=== PATIENT | female | born 1980 | race African-American/Black ===

== ENCOUNTER 2016-05-17 21:47 | Emergency (ER) | payer OTHER ==
[2016-05-17] MEDS ORDERED: Penicillin VK TAB* 250 MG PO ONE (22:44)
--- NOTE | 2016-05-17 22:45 | ED ---
Throat Pain/Nasal Congestion - HPI Summary HPI Summary: Patient present with right sided facial swelling since last night that she believes is related to a tooth that broke several weeks ago. She has had intermittent pain from the tooth without swelling up until last night. She has managed her discomfort with ibuprofen. She denies fever, chills or drainage from the area but feels her gums are swollen. She has an appointment with her dentist in three days. - History of Current Complaint Chief Complaint: EDDentalPain Time Seen by Provider: 05/17/16 22:41 Hx Obtained From: Patient Onset/Duration: Gradual Onset Severity: Severe Associated Signs And Symptoms: Positive: Negative Cough: None - Allergies/Home Medications Allergies/Adverse Reactions: Allergies Allergy/AdvReac Type Severity Reaction Status Date / Time Aspirin Allergy Severe Shortness Verified 01/17/16 13:58 of Breath PMH/Surg Hx/FS Hx/Imm Hx Endocrine/Hematology History: Denies: Hx Diabetes, Hx Thyroid Disease Cardiovascular History: Reports: Hx Hypertension - Anxiety Related Respiratory History: Reports: Hx Asthma Denies: Hx Chronic Obstructive Pulmonary Disease (COPD) GI History: Denies: Hx Ulcer Musculoskeletal History: Reports: Other Musculoskeletal History - "Bad Knees" Psychiatric History: Reports: Hx Anxiety, Hx Depression, Hx Suicide Attempt - Slit wrists when 18, Hx of Violent Episodes Against Others Denies: Hx Eating Disorder - Surgical History Surgery Procedure, Year, and Place: Appendectomy 1993. LEEP - Immunization History Date of Tetanus Vaccine: Unknown Infectious Disease History: No Infectious Disease History: Denies: Hx Clostridium Difficile, Hx Hepatitis, Hx Human Immunodeficiency Virus (HIV), Hx of Known/Suspected MRSA, Hx Shingles, Hx Tuberculosis, Hx Known/ Suspected VRE, Hx Known/Suspected VRSA, History Other Infectious Disease, Traveled Outside the [place] in Last 30 Days - Family History Known Family History: Positive: Hypertension, Diabetes, Other - [place] - Social History Occupation: Employed Part-time Lives: With Family Alcohol Use: None Substance Use Type: Reports: None Substance Use Comment - Amount & Last Used: PT DENIES MARIJUANA USE AT THIS TIME Smoking Status (MU): Heavy Every Day Tobacco Smoker Type: Cigarettes Amount Used/How Often: 1 pack a day Length of Time of Smoking/Using Tobacco: 20 years Have You Smoked in the Last Year: Yes Cessation Counseling: Patient Advised to Stop Review of Systems Negative: Fever, Chills Positive: Dental Pain. Negative: Sore Throat, Ear Ache Negative: Shortness Of Breath Negative: Headache All Other Systems Reviewed And Are Negative: Yes Physical Exam Triage Information Reviewed: Yes Vital Signs On Initial Exam: Initial Vitals Temp Pulse Resp BP Pulse Ox 98.6 F 86 16 184/104 99 05/17/16 21:54 05/17/16 21:54 05/17/16 21:54 05/17/16 21:54 05/17/16 21:54 Vital Signs Reviewed: Yes Appearance: Positive: Well-Appearing, Pain Distress, Obese Skin: Positive: Warm, Skin Color Reflects Adequate Perfusion, Dry, Soft Head/Face: Positive: Other - right sided edema noted in cheek without extension to her neck or ear. ENT: Positive: Hearing grossly normal, Pharynx normal, TMs normal. Negative: Trismus Dental: Positive: Dental Fracture @ - right upper molar. Negative: Percussion Tenderness @ Neck: Positive: Supple, Nontender, No Lymphadenopathy Respiratory/Lung Sounds: Positive: Clear to Auscultation, Breath Sounds Present Cardiovascular: Positive: RRR Neurological: Positive: Sensory/Motor Intact, Alert, Oriented to Person Place, Time, NV Bundle Intact Distally Psychiatric: Positive: Affect/Mood Appropriate AVPU Assessment: Alert Diagnostics - Vital Signs Vital Signs Temp Pulse Resp BP Pulse Ox 05/17/16 21:54 98.6 F 86 16 184/104 99 - Laboratory Lab Statement: Any lab studies that have been ordered have been reviewed, and results considered in the medical decision making process. EENT Course/Dx - Differential Diagnoses Differential Diagnoses: Dental Abscess, Dental Caries, Fracture, Fractured Tooth , Odontogenic Pain, Periodontic Abscess, Periodontic Disease - Diagnoses Provider Diagnoses: Dental infection Discharge - Discharge Plan Condition: Stable Disposition: HOME Prescriptions: Penicillin VK TAB* [Penicillin VK 250 mg Tab*] 500 mg PO QID #54 tab traMADol TAB* [Ultram*] 50 mg PO Q8H PRN #9 tab MDD 3 PRN Reason: Pain Patient Education Materials: Toothache (ED) Referrals: No Primary Care Phys,NOPCP [Primary Care Provider] - Additional Instructions: Please take your antibiotics until they are completely gone. Use 800 mg of ibuprofen three times daily with meals for the next 3-5 days to reduce swelling and pain. Use the Tramadol as needed for pain. Follow-up with your dentist [facility]. Return to the emergency department if symptoms worsen.
[2016-05-17 23:07] VITALS: BP 125/76
== END 2016-05-17 23:06 | disposition home or self-care (01) ==
LOC: ED 21:47
DX: K08.89 Other specified disorders of teeth and supporting structures (principal); F17.210 Nicotine dependence, cigarettes, uncomplicated
CPT/HCPCS: 99282; A9270-GY

== ENCOUNTER 2018-10-21 12:10 | Emergency (ER) | payer OTHER ==
[2018-10-21 12:21] VITALS: BP 129/89
--- NOTE | 2018-10-21 12:44 | UC ---
Lower Extremity/Ankle HPI - HPI Summary HPI Summary: 37 y/o female PMHX HTN presents to the urgent care c/o RT lower leg calf pain and anterior aspect w/ a red rash warm to touch and fever since Tuesday. Pt reports she heard a popping sound on her Rt ankle Tuesday afternoon. On Tuesday she developed RT ankle swelling and a red rash in the anterior aspect of her Rt distal leg. Tuesday she developed fever. Pain has increase w/ the days on the RT calf and now she is limping. Today pain is sharp 10/10 w / walking. She took Ibuprofen 2 tabs of 600mg PO and Subaxone PO to alleviate pain this morning. Pt is a heavy everyday smoker and denies taking OCP. LMP: w/ irregular periods. Pt denies numbness or tingling sensation over the Rt lower extremity, SOB, chest pain, abdominal pain, N/V/d. - History of Current Complaint Chief Complaint: UCLowerExtremity Stated Complaint: LEG PAIN Time Seen by Provider: 10/21/18 12:41 Hx Obtained From: Patient Hx Last Menstrual Period: 10/11/18 ?: No Onset/Duration: Sudden Onset, Lasting Weeks - 6 days, Still Present, Worse Since - yesterday Severity Initially: Mild Severity Currently: Severe Pain Intensity: 10 Pain Scale Used: 0-10 Numeric Aggravating Factor(s): Standing, Ambulation Alleviating Factor(s): Rest, Elevation, OTC Meds Able to Bear Weight: No - Risk Factors Gout Risk Factors: Negative DVT Risk Factors: Negative, Smoking Septic Arthritis Risk Factor: Negative - Allergies/Home Medications Allergies/Adverse Reactions: Allergies Allergy/AdvReac Type Severity Reaction Status Date / Time aspirin Allergy Shortness Verified 10/21/18 12:21 of Breath Home Medications: Home Medications amLODIPine TAB* [Norvasc 5 mg TAB*] 10 mg PO DAILY 10/21/18 [History Confirmed 10/21/18] PMH/Surg Hx/FS Hx/Imm Hx Previously Healthy: Yes Cardiovascular History: Hypertension Psychological History: Depression - Surgical History Surgical History: Yes Surgery Procedure, Year, and Place: Appendectomy 1993. LEEP - Family History Known Family History: Positive: Hypertension, Diabetes, Other - [place] - Social History Occupation: Employed Full-time Lives: With Family Alcohol Use: None Substance Use Type: Marijuana Substance Use Comment - Amount & Last Used: clean for two years Smoking Status (MU): Heavy Every Day Tobacco Smoker Type: Cigarettes Amount Used/How Often: 1 pack a day Length of Time of Smoking/Using Tobacco: 20 years Have You Smoked in the Last Year: Yes Household Exposure Type: Cigarettes - Immunization History Most Recent Influenza Vaccination: not recently Most Recent Tetanus Shot: Unsure Most Recent Pneumonia Vaccination: Never Review of Systems All Other Systems Reviewed And Are Negative: Yes Constitutional: Positive: Fever, Chills Skin: Positive: Rash - red rash warm on the anterior aspect of the RT lower leg Eyes: Positive: Negative ENT: Positive: Negative Respiratory: Positive: Negative Cardiovascular: Positive: Negative Gastrointestinal: Positive: Negative Genitourinary: Positive: Negative Motor: Positive: Negative Musculoskeletal: Positive: Decreased ROM - RT ankle, Other: - RT lower leg calf pain Neurological: Positive: Negative Psychological: Positive: Negative Is Patient Immunocompromised?: No Physical Exam - Summary Physical Exam Summary: Vital Signs Reviewed: Yes Appearance: Well-Appearing, No Pain Distress, Well-Nourished, Obese female sitting in the examining table w/ moderate apparent pain distress Eyes: Positive: Conjunctiva Clear - PERRLA< MASON, fundi grossly WNL ENT: Positive: Normal ENT inspection, Hearing grossly normal, Pharynx normal, TMs normal, Uvula midline Neck: Positive: Supple, Nontender, No Lymphadenopathy Respiratory: Positive: Chest non-tender, Lungs clear, Normal breath sounds, No respiratory distress Cardiovascular: Positive: RRR, No Murmur, Pulses Normal, Brisk Capillary Refill Abdomen Description: Positive: Nontender, No Organomegaly, Soft. Negative: CVA Tenderness (R), CVA Tenderness (L) Bowel Sounds: Positive: Present Extremities: R extremity with/without deformity or asymmetry when compared to the L. No soft tissue swelling or edema. No overlying erythema, warmth, discoloration. No lesions or break in skin integrity observed, but positive erythema on the anterior distal aspect of RT lower leg. Diameter of calves RT> LF. Soft tissues of posterior lower legs are soft, supple, tender and no palpable cords or evidence of thrombophlebitis. No evidence of gangrene or compartment syndrome. Medial thigh is without soft tissue swelling or tender to palpation. Positive Homans sign. Achilles tendon tenderness, negative desai test. No proximal lymphangitis or lymphadenopathy. Positive sensation over B/l lower legs, positive pulses, capillary refill intact and brisk. Neurological Exam: Normal Psychological Exam: Normal Skin Exam: Skin: Positive: Positive erythematous patch w/ indistinct borders, warm and tender to palpation on anterior aspect of the Rt distal lower leg near the Rt ankle, about 4dpl7gm in size, no drainage observed. pulses WNL, capillary refill brisk, sensation WNL. Triage Information Reviewed: Yes Vital Signs: Initial Vital Signs Temp 97.8 F 10/21/18 12:17 Pulse 100 10/21/18 12:17 Resp 20 10/21/18 12:17 BP 129/89 10/21/18 12:17 Pulse Ox 100 10/21/18 12:17 Lower Extremity Course/Dx - Course Course Of Treatment: 37 y/o female PMHX HTN presents to the urgent care c/o RT lower leg calf pain and anterior aspect w/ a red rash warm to touch and fever since Tuesday. Pt reports she heard a popping sound on her Rt ankle Tuesday afternoon. On Tuesday she developed RT ankle swelling and a red rash in the anterior aspect of her Rt distal leg. Tuesday she developed fever. Pain has increase w/ the days on the RT calf and now she is limping. Today pain is sharp 10/10 w / walking. She took Ibuprofen 2 tabs of 600mg PO and Subaxone PO to alleviate pain this morning. Pt is a heavy everyday smoker and denies taking OCP. LMP: w/ irregular periods. Pt denies numbness or tingling sensation over the Rt lower extremity, SOB, chest pain, abdominal pain, N/V/d. Hx obtained. Pt is hemodynamically stable. A&Ox3 w/ severe pain distress, HR: 100bpm on exam pt w/ possible cellulitis on the anterior aspect of the RT distal lower leg, positive andrew's sign and tenderness over the Achilles tendon w/ swelling and tenderness over the lateral malleolus. At this moment no US available to r/o DVT. I discussed Pt's symptoms w/ Dr King since Pt w/ possible cellulitis and Achilles tendon injury vs ankle sprain?. DR King recommends if to sent Pt to the ER to r/o DVT if main concern is DVT. I discussed w/ Pt different alternatives and she is mainly concerned about r/o DVT due to her severe calf pain. Pt offered ambulance transfer and explained the risks of not taking it. She decided she will go to [place] ER by private car w/ her friend. I discussed Pt's symptoms w/ PA Dionne Trujillo at [facility] who accepted Pt. Pt left clinic hemodynamically stable, A&OX3. - Differential Dx/Diagnosis Differential Diagnosis/HQI/PQRI: Cellulitis, Compartment Syndrome, Fracture ( Closed), Infection, Sprain, Strain, Tendonitis, Other - achiles tendon rupture, Provider Diagnosis: Right calf pain, Cellulitis of right lower leg Discharge ED - Sign-Out/Discharge Documenting (check all that apply): Patient Departure All imaging exams completed and their final reports reviewed: No Studies - Discharge Plan Condition: Stable Disposition: HOME-RECOMMEND TO ED Patient Education Materials: Leg Pain (ED) Referrals: No Primary Care Phys,NOPCP [Primary Care Provider] - Additional Instructions: I think you need a higher level or care for your presenting symptoms. I highly recommend you to go to the ER for further evaluation and treatment. The risks of not going can be , PE, DVT, sepsis,cellulitis, achiles tendon rupture. I spoke to the ER attending Dionne RUFF . They are expecting you. - Billing Disposition and Condition Condition: STABLE Disposition: Home-Recommend to ED
== END 2018-10-21 13:24 | disposition home health service (06) ==
LOC: UCEAST 12:10
DX: M79.661 Pain in right lower leg (principal); L03.115 Cellulitis of right lower limb; I10 Essential (primary) hypertension; F32.9 Major depressive disorder, single episode, unspecified; F17.210 Nicotine dependence, cigarettes, uncomplicated
CPT/HCPCS: 99212; G0463

== ENCOUNTER 2018-10-21 14:22 | Emergency (ER) | payer OTHER ==
--- NOTE | 2018-10-21 15:35 | ED ---
Lower Extremity - HPI Summary HPI Summary: Patient is a 37 y/o F presenting to [facility] with complaints of right leg soreness and redness, and fever. Patient states that on 10/16/18, she was sitting on a couch when she heard her leg "pop". Afterwards, she notes onset of soreness at her lower right leg. Patient notes that it was painful to ambulate, but she could do so. Patient had onset of fever on 10/18/18. Patient reports that she felt fatigued at the time, stating, "it felt like I was drugged". Patient's daughter had remarked to the patient that she felt very warm to touch. She took ibuprofen that evening and slept most of the following day. She states that fever is resolved, but notes that her leg soreness worsened today, 10/20/18, to the point that she cannot ambulate. Patient denies N/V. No similar previous episodes reported. Patient is on suboxone, klonopin, seroquel, ambien, and amlodipine. PMHx of anxiety, PTSD. She notes that she does not always take her klonopin as prescribed. Patient reports allergy to ASA, stating that she is unable to breathe when she takes it. PSHx of appendectomy. Patient is a current smoker, occasionally drinks alcohol, and uses marijuana. Home medications and allergies are reviewed. - History of Current Complaint Chief Complaint: EDExtremityLower Stated Complaint: RT ANKLE POPPED PER PT Time Seen by Provider: 10/21/18 15:16 Hx Obtained From: Patient Hx Last Menstrual Period: 10/11/18 Mechanism Of Injury: Other - no JULIO CESAR Onset of Pain: Days - right leg soreness and redness, 10/16/2018; fever 10/18/2018 , since reolved, Prior to Arrival Onset/Duration: Worse Since - soreness worsened today, 10/21/18 Severity Initially: Moderate Severity Currently: Severe Pain Intensity: 10 Pain Scale Used: 0-10 Numeric Timing: Constant, Lasting Days Location: Is Discrete @ - right lower leg Associated Signs And Symptoms: Positive: Fever - since resolved, Other - no N/V - Allergies/Home Medications Allergies/Adverse Reactions: Allergies Allergy/AdvReac Type Severity Reaction Status Date / Time aspirin Allergy Shortness Verified 10/21/18 12:21 of Breath PMH/Surg Hx/FS Hx/Imm Hx Endocrine/Hematology History: Denies: Hx Diabetes, Hx Thyroid Disease Cardiovascular History: Reports: Hx Hypertension - Anxiety Related Respiratory History: Reports: Hx Asthma Denies: Hx Chronic Obstructive Pulmonary Disease (COPD) GI History: Denies: Hx Ulcer Musculoskeletal History: Reports: Other Musculoskeletal History - "Bad Knees" Psychiatric History: Reports: Hx Anxiety, Hx Depression, Hx Post Traumatic Stress Disorder, Hx Suicide Attempt - Slit wrists when 18, Hx of Violent Episodes Against Others Denies: Hx Eating Disorder - Surgical History Surgery Procedure, Year, and Place: Appendectomy 1993. LEEP - Immunization History Date of Tetanus Vaccine: Unknown Infectious Disease History: No Infectious Disease History: Denies: Hx Clostridium Difficile, Hx Hepatitis, Hx Human Immunodeficiency Virus (HIV), Hx of Known/Suspected MRSA, Hx Shingles, Hx Tuberculosis, Hx Known/ Suspected VRE, Hx Known/Suspected VRSA, History Other Infectious Disease, Traveled Outside the in Last 30 Days - Family History Known Family History: Positive: Cardiac Disease - [place], Hypertension, Diabetes - Social History Alcohol Use: None Substance Use Type: Reports: Marijuana Substance Use Comment - Amount & Last Used: clean for two years Smoking Status (MU): Heavy Every Day Tobacco Smoker Type: Cigarettes Amount Used/How Often: 1 pack a day Length of Time of Smoking/Using Tobacco: 20 years Have You Smoked in the Last Year: Yes Review of Systems Positive: Fever - since resolved Negative: Vomiting, Nausea Musculoskeletal: Other - positive - right lower leg redness and soreness All Other Systems Reviewed And Are Negative: Yes Physical Exam - Summary Physical Exam Summary: General: Well-nourished, Well-nourished female. No acute distress. HEENT: Normocephalic, Atraumatic. Eyes: conjuctiva normal, PERRL. Ears: TMs within normal limits. Nares: (-) discharge, (-) erythema. Oropharynx: clear, mucous membranes moist, (-) exudates. Neck: soft, FROM, (-) lymphadenopathy, (-) thyromegaly, (-) JVD. Cardiovascular: normal sinus rhythm, (-) murmur. Respiratory: clear to auscultation bilaterally (-) wheezes, (-) rales, (-) rhonchi. Abdomen: soft, non-tender, non-distended, (-) organomegaly, normal bowel sounds. Neuro: Alert and oriented x3, no focal deficits. Extremities: There is redness, swelling, tenderness, and warmth over the mid- distal li of the right leg. She has good pulses and FROM. Skin: warm, dry, (-) rash. Psychiatric: mood normal, affect normal. Triage Information Reviewed: Yes Vital Signs On Initial Exam: Initial Vitals Temp Pulse Resp BP Pulse Ox 98.7 F 107 16 120/83 97 10/21/18 14:25 10/21/18 14:25 10/21/18 14:25 10/21/18 14:25 10/21/18 14:25 Vital Signs Reviewed: Yes Diagnostics - Vital Signs Vital Signs Temp Pulse Resp BP Pulse Ox 10/21/18 14:25 98.7 F 107 16 120/83 97 - Laboratory Lab Statement: Any lab studies that have been ordered have been reviewed, and results considered in the medical decision making process. Lower Extremity Course/Dx - Course Course Of Treatment: Patient is a 37 y/o F presenting to [facility] with complaints of right leg soreness and redness, and fever. Soreness and redness of leg onset 10/16/2018, soreness worsened today, 10/21/2018. Fever onset 10/18/2018 and is since resolved. There is redness, swelling, tenderness, and warmth over the mid- distal li of the right leg. She has good pulses and FROM. Patient was given Keflex, 500 mg PO. She was prescribed Keflex, given crutches, and discharged to home. Patient to follow up with PCP within three days. She was instructed to return to ED for any new or worsening symptoms. - Diagnoses Provider Diagnoses: Cellulitis of right leg Discharge ED - Sign-Out/Discharge Documenting (check all that apply): Patient Departure - discharge Patient Received Moderate/Deep Sedation with Procedure: No - Discharge Plan Condition: Stable Disposition: HOME Prescriptions: Cephalexin CAP* [Keflex CAP*] 500 mg PO QID 10 Days #40 cap Patient Education Materials: Cellulitis (ED) Forms: *Work Release Referrals: [facility] [Outside] - 3 Days Additional Instructions: Please follow up with your primary care physician within three days. Please return to ED for any new or worsening symptoms. - Attestation Statements Document Initiated by Scribe: Yes Documenting Scribe: LETICIA MICHAUD Provider For Whom Scribe is Documenting (Include Credential): BLAKE ELISE MD Scribe Attestation: LETICIA Amaya, scribed for BLAKE ELISE MD on 10/21/18 at 1634. Status of Scribe Document: Ready
[2018-10-21] MEDS ORDERED: Cephalexin CAP* 500 MG PO ONE (15:52)
[2018-10-21 16:25] VITALS: BP 130/6
== END 2018-10-21 16:23 | disposition home or self-care (01) ==
LOC: ED 14:22
DX: L03.115 Cellulitis of right lower limb (principal); I10 Essential (primary) hypertension; J45.909 Unspecified asthma, uncomplicated; F41.9 Anxiety disorder, unspecified; F32.9 Major depressive disorder, single episode, unspecified; F43.10 Post-traumatic stress disorder, unspecified; F17.210 Nicotine dependence, cigarettes, uncomplicated; Z79.899 Other long term (current) drug therapy; Z88.6 Allergy status to analgesic agent
CPT/HCPCS: 99282; A9270-GY

== ENCOUNTER 2018-10-29 01:43 | Emergency (ER) | payer OTHER ==
[2018-10-29] MEDS ORDERED: Ibuprofen TAB* 400 MG PO ONE (02:13)
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
[2018-10-29 03:43] VITALS: BP 137/85
== END 2018-10-29 03:10 | disposition home or self-care (01) ==
LOC: ED 01:43
DX: S93.402A Sprain of unspecified ligament of left ankle, initial encounter (principal); Y09 Assault by unspecified means; Y92.007 Garden or yard of unspecified non-institutional (private) residence as the place of occurrence of the external cause; I10 Essential (primary) hypertension; J45.909 Unspecified asthma, uncomplicated; F41.9 Anxiety disorder, unspecified; F32.9 Major depressive disorder, single episode, unspecified; F43.10 Post-traumatic stress disorder, unspecified; F17.210 Nicotine dependence, cigarettes, uncomplicated; Z79.899 Other long term (current) drug therapy; Z88.6 Allergy status to analgesic agent
CPT/HCPCS: 99282; A9270-GY

== ENCOUNTER 2019-04-03 16:06 | Emergency (ER) | payer OTHER ==
[2019-04-03 16:33] VITALS: BP 151/99
--- NOTE | 2019-04-03 17:10 | UC ---
Lower Extremity/Ankle HPI - HPI Summary HPI Summary: Patient presents to urgent care for evaluation of right ankle pain. Patient states she has had intermittent discomfort in her ankle for over a month. 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 Patient states yesterday she developed increased pain and swelling in the area. Patient states she has worse pain with dorsi extension and walking. States pain is better at rest. Patient has taken Motrin 600 mg with little improvement. Patient has not applied ice. No erythema. No fever or chills. Patient does not have any calf or knee pain. No injury. Not immunocompromised. Patient medication isn't in the EMR reviewed this visit. - History of Current Complaint Chief Complaint: UCLowerExtremity Stated Complaint: RT ANKLE PAIN Time Seen by Provider: 04/03/19 17:09 Hx Obtained From: Patient Hx Last Menstrual Period: 04/02/19 Pain Intensity: 8 - Allergies/Home Medications Allergies/Adverse Reactions: Allergies Allergy/AdvReac Type Severity Reaction Status Date / Time aspirin Allergy Shortness Verified 04/03/19 16:32 of Breath PMH/Surg Hx/FS Hx/Imm Hx Previously Healthy: Yes - Surgical History Surgical History: Yes Surgery Procedure, Year, and Place: Appendectomy 1993. LEEP - Family History Known Family History: Positive: Cardiac Disease - [place], Hypertension, Diabetes, Other - [place] - Social History Occupation: Employed Full-time Lives: With Family Alcohol Use: None Substance Use Type: Marijuana Substance Use Comment - Amount & Last Used: occasional Smoking Status (MU): Heavy Every Day Tobacco Smoker Type: Cigarettes Amount Used/How Often: 1 pack a day Length of Time of Smoking/Using Tobacco: 20 years Have You Smoked in the Last Year: Yes Household Exposure Type: Cigarettes - Immunization History Most Recent Influenza Vaccination: not recently Most Recent Tetanus Shot: Unsure Most Recent Pneumonia Vaccination: Never Review of Systems All Other Systems Reviewed And Are Negative: Yes Constitutional: Negative: Fever Musculoskeletal: Positive: Other: - right heel pain and swelling Neurological/Mental Status: Negative: Weakness, Paresthesia, Numbness Psychological: Positive: Negative Is Patient Immunocompromised?: No Physical Exam - Summary Physical Exam Summary: Vital Signs Reviewed: Yes A+Ox3, no distress Eyes: Conjunctiva Clear ENT: Hearing grossly normal neck: supple Respiratory: Positive: No respiratory distress, No accessory muscle use Cardiovascular: skin color reflect adequate perfusion 2+ DP, PT CBT <2 sec Musculoskeletal Exam: + SLE + flex/ext knee, + flex/ext knee with pain in achilless+ TTP along achilles at insertion with local edema. No warmth, no reddness no open wound, no calf pain Neurological: Positive: Alert, + gross sensation throughout foot Psychological: Positive: Normal Response To examiner Skin: Positive: no rash, no ecchymosis Triage Information Reviewed: Yes Vital Signs: Initial Vital Signs Temp 98.8 F 04/03/19 16:25 Pulse 95 04/03/19 16:25 Resp 16 04/03/19 16:25 BP 151/99 04/03/19 16:25 Pulse Ox 99 04/03/19 16:25 Diagnostics - Radiology No standard instances Radiology Interpretation Completed By: Radiologist - Patient Name: RODOLFO HERRERA Medical Record#: [id number] Ordering Physician: Linda Osorio MD Acct.#: [id number] : 1980 Age: 38 Sex: F Location: [facility] Exam Date: 04/03/191646 ADM Status: REG ER Order Information: ANKLE RIGHT 3+VWS Accession Number: [id number] CPT: 36879 INDICATION: Right ankle injury. TECHNIQUE: 3 views of the right ankle were obtained. FINDINGS: There is lateral soft tissue swelling. The bones are normal alignment. No fracture is seen. Joint spaces appear maintained. Note is made of small calcaneal spurs. IMPRESSION: SOFT TISSUE SWELLING, NO FRACTURE IS SEEN. <Electronically signed by Mekhi Stone MD in OV> [id number] Dictated By: Mekhi Stone MD Dictated Date/Time: 04/03/191710 Transcribed Date/Time: 04/03/191710 Copy to: CC:Linda Osorio MD; No Primary Care Phys,[facility] Imaging - [facility] Imaging - [facility] Care Imaging - [facility] [address] [facility] [address] [address] ph ) ph ([phone]) ph ([phone]) This report is only to be considered final once signed by the Provider(s) as displayed in the "<Electronically Signed by >" field (s). Absence of a signature indicates the report is in a draft status and still needs to be finalized. In the event this document was created by someone other than the signing Provider, the individual initiating the document will be listed in the "Entered by:" or "Dictated by:" ramirez. 1 of 1 Lower Extremity Course/Dx - Course Course Of Treatment: Patient presents with progressive painful swelling of the right Achilles area. Patient states she's not for about a month but got much worse over the last 24 hours. Patient with local edema. No erythema no redness. No calf pain. Distal CSM intact. On exam patient with tenderness and pain over the Achilles tendon at the insertion point. No deficit or concern for tear. Imaging does show a spur as well as some localized edema. Will place patient in an Adria and stirrup. Crutches. Ice and elevate. Motrin and Tylenol. Patient can take Motrin despite her aspirin allergy. Recommend she contact sports medicine or orthopedics tomorrow for follow-up this week. Work note given. Ice it. Strict return precautions. Patient comfortable and agreeable with plan. BP elevated -likely related to duscomfort- recommend PCP f/u - given pat Trever card - Differential Dx/Diagnosis Provider Diagnosis: Achilles tendonitis Discharge ED - Sign-Out/Discharge Documenting (check all that apply): Patient Departure All imaging exams completed and their final reports reviewed: Yes - Discharge Plan Condition: Stable Disposition: HOME Patient Education Materials: Achilles Tendinitis (ED) Forms: *Work Release Referrals: [facility] Orthopedic Services [Provider Group] Sports [facility] [Provider Group] Willard Atkinson MD [Medical Doctor] - Additional Instructions: - Okay to alternate ibuprofen (Advil, Motrin)600mg and Tylenol (acetaminophen) 1000mg every 3 hours for pain or fever. Take with food. Do NOT take for more than 4-5 days. - apply ice (wrapped in a towel) 15 minutes at a time, 2-3 times a day - wear adria wrap and splint for comfort and support - elevate your leg to help with swelling and pain - Contact the sports medicine office or the orthopedic office tomorrow morning to schedule a follow-up appointment this week If you have increased pain, calf crramping, fever, reddness or other concerns it is recommended you go to the emergency department for further evaluation and treatment - Billing Disposition and Condition Condition: STABLE Disposition: Home
== END 2019-04-03 17:45 | disposition home or self-care (01) ==
LOC: UCEAST 16:06
DX: M76.61 Achilles tendinitis, right leg (principal); M79.89 Other specified soft tissue disorders; F17.210 Nicotine dependence, cigarettes, uncomplicated; Z88.6 Allergy status to analgesic agent
CPT/HCPCS: 99213; G0463

== ENCOUNTER 2020-11-30 04:01 | Inpatient (IN) ==
[2020-11-30] MEDS ORDERED: Lactated Ringers 1000 ml BAG 1,000 ML IV ONE ×2 (04:40)
[2020-11-30] MEDS ORDERED: Vancomycin 1,500 MG in NS 0.9% 250 ml 250 ML IVPB ONE (06:05)
[2020-11-30] MEDS ORDERED: Piperacillin/Tazobac ADVAN 3.375 GM in NS 0.9% 100 ml BAG 100 ML IV ONE (06:05)
[2020-11-30] MEDS ORDERED: NS 0.9% 250 ml 250 ML ONE (06:10)
[2020-11-30 06:11] LABS: Hematocrit 51 % (35-47); Hemoglobin 17.4 g/dL (12.0-16.0); Mean Corpuscular HGB Conc 34 g/dL (31-36); Mean Corpuscular Hemoglobin 33 pg (27-31); Mean Corpuscular Volume 95 fL (80-97); Platelet Count 424 10^3/uL (150-450); Red Blood Count 5.34 10^6 /uL (3.70-4.87); Red Cell Distribution Width 13 % (10-15); White Blood Count 32.4 10^3/uL (3.5-10.8)
[2020-11-30 06:20] LABS: Activated Partial Thrombo Time 31.7 seconds (26.0-38.0); INR 1.32 (0.86-1.15)
[2020-11-30 06:29] LABS: Rapid COVID-19 Molecular Undetected (Undetected)
[2020-11-30 06:30] LABS: ALT 15 U/L (7-52); AST 23 U/L (13-39); Albumin 5.1 g/dL (3.2-5.2); Albumin/Globulin Ratio 1.6 (1-3); Alkaline Phosphatase 91 U/L (35-149); Anion Gap 18 mmol/L (2-11); Blood Urea Nitrogen 37 mg/dL (6-24); C Reactive Protein 1.27 mg/L (<8.01); CO2 Carbon Dioxide 23 mmol/L (22-32); Calcium 10.2 mg/dL (8.6-10.3); Chloride 101 mmol/L (101-111); Creatine Kinase 811 U/L (10-223); Globulin 3.2 g/dL (2-4); Glucose 147 mg/dL (70-100); Potassium 3.1 mmol/L (3.5-5.0); Sodium 142 mmol/L (135-145); Total Protein 8.3 g/dL (6.4-8.9)
[2020-11-30 06:34] LABS: Acetaminophen < 15 mcg/mL; Alcohol, S < 13 mg/dL (<13); Salicylate < 2.50 mg/dL (<30)
[2020-11-30 06:39] LABS: Urine Appearance Cloudy; Urine Bacteria Absent (Absent); Urine Bilirubin Negative (Negative); Urine Blood 1+ (Negative); Urine Color Amber; Urine Glucose 1+(50 mg/dL) (Negative); Urine Ketones Trace (Negative); Urine Nitrite Negative (Negative); Urine Protein 3+(>=500 mg/dL) (Negative); Urine Red Blood Cell 2+(6-10/hpf) (Absent); Urine Specific Gravity 1.032 (1.002-1.030); Urine Squamous Epithelial Cell Present (Absent); Urine Urobilinogen Negative (Negative); Urine White Blood Cell Trace(0-5/hpf) (Absent)
[2020-11-30 07:14] LABS: ABS Basophils 0.2 10^3/ul (0-0.2); ABS Lymphocytes 2.4 10^3/ul (1.0-4.8); ABS Monocytes 2.2 10^3/ul (0-0.8); ABS Neutrophils 27.6 10^3/ul (1.5-7.7); Lymphocyte % 7.4 %
[2020-11-30 07:41] LABS: Urine Benzodiazepine Screen Presumptive Positive (None Detect); Urine Cannabinoids Screen Presumptive Positive (None Detect); Urine Opiates Screen None Detected (None Detect)
[2020-11-30] MEDS ORDERED: NS 0.9% 1000 ml BAG 1,000 ML IV ONE ×2 (08:16→08:35)
[2020-11-30] MEDS ORDERED: hydrALAZINE 20 mg/ml 1 ML Vial IV IV SLOW PU ONE (08:16)
[2020-11-30] MEDS ORDERED: Ondansetron 4 mg VIAL 2 MG/ML 2 ml VIAL IV PRN (08:41)
[2020-11-30] MEDS ORDERED: Vancomycin per Pharmacy 1 EA NOTE FOLLOW UP SCH (09:00)
[2020-11-30 09:18] LABS: Creatine Kinase 725 U/L (10-223)
[2020-11-30 09:24] LABS: Troponin I 0.15 ng/mL (<0.03)
[2020-11-30] MEDS ORDERED: cefTRIAXone 1 gm/50 mL NS BAG 1 GM/50 ML BAG IVPB SCH (11:00)
[2020-11-30 11:38] LABS: Troponin I 0.17 ng/mL (<0.03)
[2020-11-30] MEDS ORDERED: Nitro 2% OINT (Nitroglycerin) 1 INCH/PAK TOPICAL ONE (12:03)
[2020-11-30 12:45] LABS: Influenza A Molecular Negative (Negative); Influenza B Molecular Negative (Negative)
[2020-11-30 14:00] LABS: Urine Appearance Cloudy; Urine Bilirubin Negative (Negative); Urine Blood 1+ (Negative); Urine Color Yellow; Urine Glucose Negative (Negative); Urine Ketones Trace (Negative); Urine Nitrite Negative (Negative); Urine Protein 2+(100 mg/dL) (Negative); Urine Specific Gravity 1.033 (1.002-1.030); Urine Urobilinogen Negative (Negative)
[2020-11-30 14:03] LABS: Urine Bacteria Absent (Absent); Urine Red Blood Cell 1+(3-5/hpf) (Absent); Urine Squamous Epithelial Cell Present (Absent); Urine White Blood Cell 1+(6-10/hpf) (Absent)
[2020-11-30] MEDS: Heparin 5000 UNITS/ML 1 mL VIAL SUBCUT SCH ×2 (16:37→22:01)
[2020-11-30] MEDS: NS 0.9% 1000 ml BAG 1,000 ML IV SCH ×2 (16:54→20:07)
[2020-11-30] MEDS: Vancomycin 750 MG in NS 0.9% 250 ML IVPB SCH (19:59)
[2020-11-30] MEDS: cefTRIAXone 2 GM ADDV.VIAL 2 GM in NS 0.9% 100 ml BAG 100 ML IV SCH (21:59)
[2020-11-30] MEDS: hydrALAZINE 20 mg/ml 1 ML Vial IV IV SLOW PU PRN (23:32)
[2020-12-01] MEDS: Heparin 5000 UNITS/ML 1 mL VIAL SUBCUT SCH ×3 (05:26→21:33)
[2020-12-01] MEDS: hydrALAZINE 20 mg/ml 1 ML Vial IV IV SLOW PU PRN ×3 (06:10→18:50)
[2020-12-01 06:15] LABS: ABS Basophils 0.1 10^3/ul (0-0.2); ABS Lymphocytes 2.8 10^3/ul (1.0-4.8); ABS Monocytes 1.3 10^3/ul (0-0.8); ABS Neutrophils 17.3 10^3/ul (1.5-7.7); Eosinophil % 0.1 %; Hematocrit 40 % (35-47); Hemoglobin 13.7 g/dL (12.0-16.0); Lymphocyte % 13.1 %; Mean Corpuscular HGB Conc 34 g/dL (31-36); Mean Corpuscular Hemoglobin 33 pg (27-31); Mean Corpuscular Volume 96 fL (80-97); Platelet Count 276 10^3/uL (150-450); Red Blood Count 4.19 10^6 /uL (3.70-4.87); Red Cell Distribution Width 13 % (10-15); White Blood Count 21.5 10^3/uL (3.5-10.8)
[2020-12-01 06:31] LABS: Calcium 8.8 mg/dL (8.6-10.3)
[2020-12-01 06:37] LABS: Potassium 2.7 mmol/L (3.5-5.0)
[2020-12-01] MEDS: KCL 20 MEQ/100 ML IVPREMIX 20 MEQ/100 ML BAG IV SCH ×3 (06:50→12:32)
[2020-12-01] MEDS ORDERED: cloNIDine 0.2 MG PATCH 0.2 MG/24 HR 7 DAY PATCH TRANSDERM SCH (08:00)
[2020-12-01] MEDS: Vancomycin 750 MG in NS 0.9% 250 ML IVPB SCH (10:05)
[2020-12-01] MEDS: Vancomycin 1,250 MG in NS 0.9% 250 ml 250 ML IVPB SCH ×2 (10:05→21:33)
[2020-12-01] MEDS: cefTRIAXone 2 GM ADDV.VIAL 2 GM in NS 0.9% 100 ml BAG 100 ML IV SCH (12:32)
[2020-12-01 14:24] LABS: Calcium 8.3 mg/dL (8.6-10.3); Potassium 3.1 mmol/L (3.5-5.0)
[2020-12-01] MEDS ORDERED: Potassium Chlor 20 meq TAB.ER PO ONE (17:42)
[2020-12-02] MEDS: cefTRIAXone 2 GM ADDV.VIAL 2 GM in NS 0.9% 100 ml BAG 100 ML IV SCH ×3 (00:42→23:01)
[2020-12-02] MEDS: hydrALAZINE 20 mg/ml 1 ML Vial IV IV SLOW PU PRN (01:05)
[2020-12-02] MEDS: Heparin 5000 UNITS/ML 1 mL VIAL SUBCUT SCH ×3 (05:53→23:01)
[2020-12-02 08:25] LABS: ABS Basophils 0.1 10^3/ul (0-0.2); ABS Eosinophils 0.1 10^3/ul (0-0.6); ABS Lymphocytes 3.1 10^3/ul (1.0-4.8); ABS Neutrophils 12.6 10^3/ul (1.5-7.7); Eosinophil % 0.5 %; Hematocrit 40 % (35-47); Hemoglobin 13.7 g/dL (12.0-16.0); Lymphocyte % 18.5 %; Mean Corpuscular HGB Conc 34 g/dL (31-36); Mean Corpuscular Hemoglobin 33 pg (27-31); Mean Corpuscular Volume 95 fL (80-97); Mean Platelet Volume 8.6 fL (7.4-10.4); Nucleated Red Blood Cells % 0.1; Platelet Count 278 10^3/uL (150-450); Red Blood Count 4.23 10^6 /uL (3.70-4.87); Red Cell Distribution Width 13 % (10-15); White Blood Count 16.8 10^3/uL (3.5-10.8)
[2020-12-02] MEDS ORDERED: Vancomycin Trough Check NOTE FOLLOW UP ONE (08:30)
[2020-12-02 08:48] LABS: C Reactive Protein 1.03 mg/L (<8.01); Calcium 8.9 mg/dL (8.6-10.3); Potassium 3.3 mmol/L (3.5-5.0)
[2020-12-02 08:53] LABS: Vancomycin Trough 5.8 mcg/mL
[2020-12-02] MEDS: Vancomycin 1,250 MG in NS 0.9% 250 ml 250 ML IVPB SCH ×2 (09:28→16:59)
[2020-12-02] MEDS ORDERED: Potassium Chlor 20 meq TAB.ER PO ONE (12:21)
[2020-12-02 12:52] LABS: Hematocrit 39 % (35-47); Hemoglobin 13.4 g/dL (12.0-16.0)
[2020-12-03] MEDS: Vancomycin 1,250 MG in NS 0.9% 250 ml 250 ML IVPB SCH ×4 (00:56→23:59)
[2020-12-03 05:54] LABS: ABS Basophils 0.1 10^3/ul (0-0.2); ABS Eosinophils 0.1 10^3/ul (0-0.6); ABS Lymphocytes 4.2 10^3/ul (1.0-4.8); ABS Monocytes 0.9 10^3/ul (0-0.8); ABS Neutrophils 7.7 10^3/ul (1.5-7.7); Hematocrit 36 % (35-47); Hemoglobin 12.4 g/dL (12.0-16.0); Lymphocyte % 32.4 %; Mean Corpuscular HGB Conc 34 g/dL (31-36); Mean Corpuscular Hemoglobin 33 pg (27-31); Mean Corpuscular Volume 96 fL (80-97); Mean Platelet Volume 8.9 fL (7.4-10.4); Nucleated Red Blood Cells % 0.1; Platelet Count 252 10^3/uL (150-450); Red Blood Count 3.77 10^6 /uL (3.70-4.87); Red Cell Distribution Width 12 % (10-15)
[2020-12-03 05:59] LABS: CO2 Carbon Dioxide 23 mmol/L (22-32); Calcium 7.9 mg/dL (8.6-10.3); Chloride 106 mmol/L (101-111); Sodium 135 mmol/L (135-145)
[2020-12-03] MEDS: Heparin 5000 UNITS/ML 1 mL VIAL SUBCUT SCH ×3 (05:59→21:16)
[2020-12-03 06:04] LABS: Blood Urea Nitrogen 11 mg/dL (6-24); Glucose 107 mg/dL (70-100)
[2020-12-03 06:10] LABS: Anion Gap 6 mmol/L (2-11)
[2020-12-03] MEDS ORDERED: Potassium Chlor 20 meq TAB.ER PO ONE (10:11)
[2020-12-03] MEDS: Buprenorp/Nalox 8-2 MG SL TAB PO SCH ×2 (10:18→17:21)
[2020-12-03] MEDS: cefTRIAXone 2 GM ADDV.VIAL 2 GM in NS 0.9% 100 ml BAG 100 ML IV SCH ×2 (10:56→23:02)
[2020-12-03 13:07] LABS: Body Fluid Source Cerebral Spinal
[2020-12-03 13:09] LABS: Body Fluid Appearance Clear; Body Fluid Color Colorless; CSF Tube # 4
[2020-12-03 13:21] LABS: CSF Glucose 66 mg/dL (40-70)
[2020-12-03 14:03] LABS: Body Fluid WBC 3 /mcL
[2020-12-03 14:04] LABS: Body Fluid Total Cells Counted 9
[2020-12-03] MEDS: carBAMazepine 100mg CHEWTAB PO SCH (21:16)
[2020-12-04] MEDS: Buprenorp/Nalox 8-2 MG SL TAB PO SCH ×3 (01:28→17:49)
[2020-12-04] MEDS: Heparin 5000 UNITS/ML 1 mL VIAL SUBCUT SCH ×3 (06:01→22:25)
[2020-12-04] MEDS ORDERED: Vancomycin Trough Check NOTE FOLLOW UP ONE (08:30)
[2020-12-04 09:00] LABS: ABS Basophils 0.1 10^3/ul (0-0.2); ABS Eosinophils 0.4 10^3/ul (0-0.6); ABS Lymphocytes 4.4 10^3/ul (1.0-4.8); ABS Monocytes 0.7 10^3/ul (0-0.8); ABS Neutrophils 6.1 10^3/ul (1.5-7.7); Eosinophil % 3.8 %; Hematocrit 35 % (35-47); Hemoglobin 11.8 g/dL (12.0-16.0); Lymphocyte % 37.6 %; Mean Corpuscular HGB Conc 34 g/dL (31-36); Mean Corpuscular Hemoglobin 32 pg (27-31); Mean Corpuscular Volume 95 fL (80-97); Mean Platelet Volume 7.7 fL (7.4-10.4); Nucleated Red Blood Cells % 0.2; Platelet Count 252 10^3/uL (150-450); Red Blood Count 3.64 10^6 /uL (3.70-4.87); Red Cell Distribution Width 12 % (10-15); White Blood Count 11.8 10^3/uL (3.5-10.8)
[2020-12-04 09:16] LABS: Calcium 8.4 mg/dL (8.6-10.3); Potassium 3.6 mmol/L (3.5-5.0)
[2020-12-04] MEDS: carBAMazepine 100mg CHEWTAB PO SCH ×2 (09:22→22:25)
[2020-12-04 09:40] LABS: Vancomycin Trough 10.8 mcg/mL
[2020-12-04] MEDS: Vancomycin 1,250 MG in NS 0.9% 250 ml 250 ML IVPB SCH (10:38)
[2020-12-04 13:18] LABS: CSF VDRL Negative (Negative)
[2020-12-04 17:29] LABS: HSV 1 PCR, CSF Negative (Negative); HSV 2 PCR, CSF Negative (Negative)
[2020-12-04] MEDS ORDERED: Nicotine GUM 2MG FRUIT FLAVOR PO PRN (22:17)
[2020-12-05] MEDS: Buprenorp/Nalox 8-2 MG SL TAB PO SCH ×2 (02:06→08:44)
[2020-12-05] MEDS: Heparin 5000 UNITS/ML 1 mL VIAL SUBCUT SCH (05:52)
[2020-12-05 06:36] LABS: Hematocrit 34 % (35-47); Hemoglobin 11.4 g/dL (12.0-16.0); Mean Corpuscular HGB Conc 34 g/dL (31-36); Mean Corpuscular Hemoglobin 33 pg (27-31); Mean Corpuscular Volume 98 fL (80-97); Mean Platelet Volume 8.5 fL (7.4-10.4); Platelet Count 263 10^3/uL (150-450); Red Blood Count 3.48 10^6 /uL (3.70-4.87); Red Cell Distribution Width 12 % (10-15); White Blood Count 13.1 10^3/uL (3.5-10.8)
[2020-12-05 06:38] LABS: Calcium 8.3 mg/dL (8.6-10.3); Potassium 3.6 mmol/L (3.5-5.0)
[2020-12-05] MEDS: carBAMazepine 100mg CHEWTAB PO SCH (08:42)
[2020-12-05 08:50] VITALS: BP 150/83
[2020-12-05] MEDS ORDERED: Nicotine PATCH 7 MG/24 HR PATCH TRANSDERM SCH (09:00)
[2020-12-05 15:18] LABS: B. garinii/B. afzellii PCR Negative (Negative); Lyme Disease Source CSF
== END 2020-12-05 11:30 | disposition home or self-care (01) | DRG 720 ==
LOC: ED 04:01 → MED 08:41 → SUATTDRO 08:41
PROVIDERS: ADMIT Internal Medicine; ATTEND Pediatrics